=== PATIENT | male | born 1995 | race Asian ===

== ENCOUNTER → 2016-12-02 | Day surgery (SDC) | payer OTHER ==
[~2016-12-02] VITALS: Ht 180.3 cm; Wt 90.7 kg
[~2016-12-02] MED LIST: PRIL40 PO
[2016-12-02 14:14] VITALS: BP 123/59; PULSE 74; TEMP 98
[2016-12-02 15:10] VITALS: BP 108/59; PULSE 82; TEMP 97.6
[2016-12-02 15:25] VITALS: BP 113/67; PULSE 92
[2016-12-02 15:40] VITALS: BP 123/60; PULSE 82
== END ==
LOC: SDCO 13:42
DX: K20.9 Esophagitis, unspecified (principal); K59.00 Constipation, unspecified; R11.2 Nausea with vomiting, unspecified
CPT/HCPCS: J2250; J3010; J7030

== ENCOUNTER 2018-10-14 09:34 | Emergency (ER) | payer OTHER ==
[~2018-10-14] VITALS: Ht 180.3 cm; Wt 93.2 kg
[2018-10-14 09:49] VITALS: TEMP 97.1
[2018-10-14] MEDS ORDERED: CRUTCHES MC (10:46)
[2018-10-14 10:48] VITALS: BP 134/74; PULSE 70
== END 2018-10-14 10:49 | disposition home or self-care (01) ==
LOC: COL.ER 09:34
DX: S92.352A Displaced fracture of fifth metatarsal bone, left foot, initial encounter for closed fracture (principal); W50.0XXA Accidental hit or strike by another person, initial encounter; Y93.67 Activity, basketball
CPT/HCPCS: Q4045

== ENCOUNTER 2020-12-14 11:02 | Emergency (ER) | payer OTHER ==
[~2020-12-14] VITALS: Ht 180.3 cm; Wt 100.0 kg
[~2020-12-14 11:02] MED LIST changes: +CRUTCHES MC
[2020-12-14 11:21] VITALS: TEMP 98
[2020-12-14] MEDS ORDERED: PRILOSEC10 MG PO (11:29)
[2020-12-14 13:17] VITALS: BP 123/73; PULSE 61
== END 2020-12-14 13:17 | disposition home or self-care (01) ==
LOC: COL.ER 11:02
DX: T52.91XA Toxic effect of unspecified organic solvent, accidental (unintentional), initial encounter (principal); X58.XXXA Exposure to other specified factors, initial encounter; Y99.0 Civilian activity done for income or pay